=== PATIENT | male | born 1975 | race Caucasian/White ===

== ENCOUNTER 2023-11-22 21:28 | Emergency (ER) | payer OTHER ==
[2023-11-22 21:38] VITALS: BP 147/82; PULSE 87; RESP 18; TEMP 97.8; BMI 38.9
[2023-11-22] MEDS ORDERED: IBUPROFEN 400 MG TABLET (FP) PO ONE ×2 (22:08→22:11)
== END 2023-11-22 22:13 | disposition home or self-care (01) ==
LOC: FER 21:28
DX: S13.4XXA Sprain of ligaments of cervical spine, initial encounter (principal); M54.2 Cervicalgia; M62.838 Other muscle spasm; M25.512 Pain in left shoulder; M25.511 Pain in right shoulder; V49.50XA Passenger injured in collision with unspecified motor vehicles in traffic accident, initial encounter
CPT/HCPCS: 99283-25

== ENCOUNTER 2025-02-05 03:39 | Emergency (ER) | payer OTHER ==
[2025-02-05 03:45] VITALS: BP 149/87; PULSE 83; RESP 18; TEMP 98; BMI 39.5
[2025-02-05] MEDS: SODIUM CHLORIDE 0.9% 500 ML INFUS.BAG IV ONE (04:31)
== END 2025-02-05 05:51 | disposition home or self-care (01) ==
LOC: JER 03:39
DX: N20.0 Calculus of kidney (principal)
CPT/HCPCS: 36415; 99283-25

== ENCOUNTER 2025-02-12 05:34 | Day surgery (SDC) | payer OTHER ==
[2025-02-10 09:27] VITALS: BMI 38.9
[2025-02-12 13:05] VITALS: RESP 18
[2025-02-12] MEDS ORDERED: ELECTROLYTE-148 SOLN 1,000 ML IV SCH (14:15)
[2025-02-12] MEDS ORDERED: MIDAZOLAM HCL 2 MG/2 ML SINGLE DOSE VIAL ONE (14:17)
[2025-02-12] MEDS ORDERED: ONDANSETRON 4 MG/2 ML VIAL ONE (14:18)
[2025-02-12] MEDS ORDERED: DEXAMETHASONE SOD PHOSPHATE 4 MG/1 ML VIAL ONE (14:18)
[2025-02-12] MEDS: ceFAZolin SODIUM 1 GM VIAL IVPB ONE (14:38)
[2025-02-12 16:10] VITALS: BP 120/81; PULSE 60; TEMP 98
== END 2025-02-12 16:07 | disposition home or self-care (01) ==
LOC: JASU-SURG 05:34
PROVIDERS: ATTEND Urology
PROC: 0TF7XZZ Fragmentation in Left Ureter, External Approach (ICD-10-PCS; 2025-02-12)
PROC: 0TF4XZZ Fragmentation in Left Kidney Pelvis, External Approach (ICD-10-PCS; principal; 2025-02-12 14:15)
DX: N20.2 Calculus of kidney with calculus of ureter (principal)

== ENCOUNTER 2025-02-15 01:44 | Observation (INO) | payer OTHER ==
[2025-02-15] MEDS ORDERED: ONDANSETRON 4 MG/2 ML VIAL ONE ×2 (02:30→08:19)
[2025-02-15] MEDS ORDERED: KETOROLAC TROMETHAMINE 15 MG/ML VIAL ONE ×2 (02:30→08:12)
[2025-02-15] MEDS ORDERED: morphine SULFATE 4 MG/ML VIAL ONE ×3 (02:30→06:53)
[2025-02-15 02:37] LABS: ABSOLUTE IMMATURE GRANULOCYTES 0.01 x10^3/uL (0.0-0.031); BASOPHILS # 0.04 x10^3/uL (0.01-0.08); EOSINOPHIL % 2.2 % (0.8-7.0); EOSINOPHILS # 0.13 x10^3/uL (0.04-0.54); HEMATOCRIT 47.6 % (40.1-51.0); HEMOGLOBIN 15.3 g/dL (13.7-17.5); MCHC 32.1 g/dl (32.3-36.5); MEAN CELL VOLUME 88.1 fl (79.0-92.2); MEAN PLT VOLUME 9.2 fl (9.4-12.4); MONOCYTE # 0.35 x10^3/uL (0.30-0.82); MONOCYTE % 5.8 % (5.3-12.2); PLATELET COUNT # 310 x10^3/uL (163-337); RDW 12.9 % (12.2-16.1)
[2025-02-15] MEDS: SODIUM CHLORIDE 0.9% 500 ML INFUS.BAG IV ONE ×2 (02:41→12:13)
[2025-02-15] MEDS: ONDANSETRON 4 MG/2 ML VIAL IVPB ONE (02:41)
[2025-02-15] MEDS: morphine SULFATE 4 MG/ML VIAL IVPUSH ONE ×3 (02:42→06:52)
[2025-02-15] MEDS: KETOROLAC TROMETHAMINE 15 MG/ML VIAL IVPUSH ONE ×2 (02:42→08:17)
[2025-02-15 03:00] LABS: POTASSIUM 4.2 mmol/L (3.5-5.1)
[2025-02-15 03:02] LABS: CALCIUM 9.2 mg/dL (8.5-10.1)
[2025-02-15 03:03] LABS: ALBUMIN 4.1 g/dl (3.4-5.0); BLOOD UREA NITROGEN 12.8 mg/dL (7-18)
[2025-02-15 03:06] LABS: CREATININE 1.2 mg/dL (0.55-1.3)
[2025-02-15 03:07] LABS: BILIRUBIN,TOTAL 0.3 mg/dL (0.2-1); TOT PROT 7.5 g/dl (6.4-8.2)
[2025-02-15] MEDS ORDERED: ACETAMINOPHEN INJECTION 100 ML ONE (03:07)
[2025-02-15] MEDS: ACETAMINOPHEN 1000 MG/100 ML BAG IVPB ONE (03:18)
[2025-02-15 04:02] LABS: EPI CELLS 7 /uL (0-25.1); HYALINE CASTS 9 /uL (0-3.1); URINE APPEARANCE CLOUDY; URINE BACTERIA 9 /uL (0-1359); URINE BILIRUBIN NEGATIVE (NEGATIVE); URINE COLOR YELLOW; URINE GLUCOSE (UA) NEGATIVE (NEGATIVE); URINE KETONE NEGATIVE (NEGATIVE); URINE LEUK ESTERASE NEGATIVE (NEGATIVE); URINE NITRITE NEGATIVE (NEGATIVE); URINE PROTEIN TRACE (NEGATIVE); URINE RBC 151 /uL (0-23.9); URINE UROBILINOGEN 0.2 mg/dL (0.2-1.0); URINE WBC 3 /uL (0-25.8)
[2025-02-15] MEDS: ONDANSETRON 4 MG/2 ML VIAL IVPUSH ONE (08:26)
[2025-02-15 11:12] VITALS: RESP 18; BMI 39.6
[2025-02-15] MEDS ORDERED: ACETAMINOPHEN 1000 MG/100 ML BAG IVPB PRN (11:27)
[2025-02-15] MEDS ORDERED: ONDANSETRON 4 MG/2 ML VIAL IVPUSH PRN (11:28)
[2025-02-15] MEDS: SODIUM CHLORIDE 1,000 ML IV SCH ×2 (12:08→20:01)
[2025-02-15] MEDS: DEXTROSE 5%-NORMAL SALINE 1,000 ML IV SCH ×2 (12:13→13:51)
[2025-02-15] MEDS: TAMSULOSIN HCL 0.4 MG CAP PO ONE ×2 (12:26→13:52)
[2025-02-15] MEDS: MELATONIN 5 MG TABLETS PO ONE (22:36)
[2025-02-16 08:02] LABS: ABSOLUTE IMMATURE GRANULOCYTES 0.01 x10^3/uL (0.0-0.031); BASOPHILS # 0.03 x10^3/uL (0.01-0.08); EOSINOPHIL % 2.4 % (0.8-7.0); EOSINOPHILS # 0.09 x10^3/uL (0.04-0.54); HEMATOCRIT 42.6 % (40.1-51.0); HEMOGLOBIN 13.7 g/dL (13.7-17.5); MCHC 32.2 g/dl (32.3-36.5); MEAN CELL VOLUME 88.8 fl (79.0-92.2); MEAN PLT VOLUME 9.5 fl (9.4-12.4); PLATELET COUNT # 242 x10^3/uL (163-337); RDW 13.1 % (12.2-16.1)
[2025-02-16] MEDS: TAMSULOSIN HCL 0.4 MG CAP PO SCH (08:09)
[2025-02-16 08:23] LABS: POTASSIUM 4.2 mmol/L (3.5-5.1)
[2025-02-16 08:30] LABS: CALCIUM 8.8 mg/dL (8.5-10.1)
[2025-02-16] MEDS ORDERED: TAMSULOSIN HCL 0.4 MG CAP PO SCH (08:30)
[2025-02-16 08:31] LABS: ALBUMIN 3.4 g/dl (3.4-5.0); BILIRUBIN,TOTAL 0.5 mg/dL (0.2-1); BLOOD UREA NITROGEN 8.2 mg/dL (7-18); TOT PROT 6.2 g/dl (6.4-8.2)
[2025-02-16 08:34] LABS: CREATININE 0.9 mg/dL (0.55-1.3)
[2025-02-16 15:49] VITALS: BP 132/87; PULSE 81; TEMP 98.4
== END 2025-02-16 17:56 | disposition home or self-care (01) ==
LOC: JER 01:44 → JERBED 06:50 → J7W 09:21
PROVIDERS: ADMIT Internal Medicine; ATTEND Internal Medicine
PROC: 3E0337Z Introduction of Electrolytic and Water Balance Substance into Peripheral Vein, Percutaneous Approach (ICD-10-PCS; principal; 2025-02-15)
PROC: 3E033NZ Introduction of Analgesics, Hypnotics, Sedatives into Peripheral Vein, Percutaneous Approach (ICD-10-PCS; 2025-02-15)
PROC: 3E0333Z Introduction of Anti-inflammatory into Peripheral Vein, Percutaneous Approach (ICD-10-PCS; 2025-02-15)
PROC: 3E033GC Introduction of Other Therapeutic Substance into Peripheral Vein, Percutaneous Approach (ICD-10-PCS; 2025-02-15)
DX: N20.0 Calculus of kidney (principal); E66.9 Obesity, unspecified; Z87.442 Personal history of urinary calculi
CPT/HCPCS: 36415; 74176-TC; 80053; 81003; 85025; 87086; 93005; 93010; 99285-25; G0378; J0131